=== PATIENT | female | born 1950 | race Caucasian/White ===

== ENCOUNTER 2024-05-02 14:49 | Emergency (ER) | payer MEDICARE, SELFPAY ==
[2024-05-02 14:50] VITALS: BP 154/75; PULSE 56; RESP 16; TEMP 36.2; O2SAT 95; BMI 38.6
[2024-05-02 15:15] LABS: Absolute Lymphocyte Count 1.29 X10^3/uL (0.83-4.51); Absolute Neutrophil Count 6.1 X10^3/uL (2.0-7.7); Basophil# 0.03 X10^3/uL; Basophil% 0.4 % (0-1); Eosinophil# 0.14 X10^3/uL; Eosinophils% 1.8 % (0-5); Hemoglobin 12.2 g/dL (12.0-15.0); Lymphocyte # 1.29 X10^3/ul (0.83-4.51); Lymphocyte % 16.2 % (19-41); Mean Corp Hgb Conc 33.9 g/dL (32-36); Mean Corpuscular Hgb 29.5 pg (27.0-32.0); Mean Platelet Vol. 10.1 fl (6.2-12.0); Monocyte# 0.39 X10^3/uL; Monocyte% 4.9 % (0-10); NRBC Flagged by Analyzer 0 % (0-5); Neutrophil # 6.08 X10^3/uL (2.7-7.7); Neutrophil % 76.3 % (47-70); Platelet Count 266 K/mm3 (150-450); RBC Distribution Width CV 12.3 % (11.6-14.6); RBC Distribution Width SD 39.6 fl (35.1-43.9); Red Blood Count 4.14 M/mm3 (4.2-5.4)
--- NOTE | 2024-05-02 15:25 | RAD_ITS ---
INDICATION: Pain EXAMINATION/TECHNIQUE: X-RAY - XR Abdomen Series W/ Chest 1 View COMPARISON: No relevant prior comparison study available FINDINGS: --Chest: LINES/DEVICES: None. LUNGS: No consolidation, edema or effusion. There is a granuloma within the left midlung. No pneumothorax. MEDIASTINUM AND CARDIOVASCULAR STRUCTURES: Cardiac silhouette not enlarged. Central airways and mediastinal contour are unremarkable. BONES AND SOFT TISSUES: No acute findings. --Abdomen: BOWEL GAS PATTERN: Non-obstructive. No bowel or stomach distention. FREE AIR: None visualized. ORGANOMEGALY: Not seen. CALCIFICATIONS: There are calcific densities within the expected region of the spleen consistent with splenic granulomas. BONES AND SOFT TISSUES: No acute findings. RAD/Acute Abdomen Inc Chest IMPRESSION: No acute cardiopulmonary process. Nonspecific bowel gas pattern. Electronically Signed: Flor Everett MD at 16:00 EDT ,
--- NOTE | 2024-05-02 15:32 | EDS_ITS ---
HPI HPI - GI History of Present Illness Chief Complaint: Abd Pain Detail of Chief Complaint: Indigestion initially and then to episodes of abdominal muscle cramping Informant: patient and spouse/S.O. Abdominal Pain/Flank Pain Onset: Today ( 100 to 100 when she was awakened from sleep with indigestion and 2 episodes since she was awake of cramping pain) Context: Sudden Onset Timing: Intermittent Quality: Cramping (2 episodes that lasted 2 to 3 minutes in duration) and - (Indigestion that awoke her from sleep and lasted for 1 hour) Location: Diffuse (All 3 episodes) Current Severity: Gone Maximum Severity: Severe Worsened by: Nothing; Not Worsened By Car ride, Food or Movement Relieved by: Nothing; Not Relieved By Antacids, Food or Remaining Still Nausea/Vomiting/Emesis GI Symptom: Positive for Nausea; Negative for Vomiting Diarrhea/Melena/Hematochezia GI Symptom: Positive for - (1 soft mushy stool this morning without blood or mucus); Negative for Diarrhea, Melena or Hematochezia Associated Symptoms Associated Symptoms: Negative for Dysuria, Frequency, Hematuria or Urgency LMP: Status post hysterectomy many years ago for vaginal bleeding Narrative Narrative: Patient is a 73-year-old female. She has no significant past medical history. She awoke from sleep at 02 100 because of generalized indigestion that lasted an hour. She had no other symptoms at that time. I.e. cardiac or respiratory or urologic. This morning after awakening she had a soft mushy stool and had an episode where her entire abdominal wall cramped and lasted 2 to 3 minutes. She had another episode when she was out with her and became diaphoretic and was lightheaded. This lasted 2 to 3 minutes as well. She is presently pain- free and has no symptoms. She denies fever, chills night sweats. She denies history of renal ureterolithiasis. She denies dysuria, frequency, urgency or hematuria. She denies blood or mucus in her stool. She did make the comment that she feels like she could have a large bowel movement. There is no history of direct or indirect trauma. She has never had pain like this. Prior similar symptoms: No Recent Illness/Hospitalization: No [facility] Medical History (Updated 05/02/24 @ 16:[address] Gilmer Huang MD) Hypercholesterolemia Type 2 diabetes mellitus Hypothyroidism Hypertension Allergy/AdvReac Type Severity Reaction Status Date / Time No Known Allergies Allergy Verified 05/02/24 14:51 Social History (Updated 05/02/24 @ 15:[address] Gilmer Huang MD) household members: spouse Smoking Status: Never smoker ROS ROS ED Constitutional Constitutional ED: Denies chills, fever(s), subjective, sweats or weight loss ENT ENT ED: Denies ear pain, rhinorrhea or sore throat Cardiovascular Cardiovascular: Denies chest pain or palpitations Respiratory/Chest Respiratory/Chest: Denies cough, dyspnea or dyspnea on exertion Gastrointestinal Gastrointestinal: Reports abdominal pain and nausea; Denies constipation, diarrhea, melena or vomiting Genitourinary Genitourinary ED: Denies dysuria, hematuria or urinary frequency Musculoskeletal Musculoskeletal: Denies arthralgias, back pain, myalgias or neck pain Integumentary Denies rash Endocrine Endocrinology: Denies polydipsia or polyphagia Hematologic/Lymphatic Hematologic/Lymphatic: Denies easy bleeding or easy bruising EXAM Physical Exam Const Vital Signs: 05/02/24 14:50 Temperature 97.2 F L Temperature Source Temporal Pulse Rate 56 L Respiratory Rate 16 Blood Pressure 154/75 H Blood Pressure Mean 101 Pulse Ox 95 Oxygen Delivery Method Room Air Positive well nourished and well developed General Appearance ED: well developed; Negative for pallor HEENT Reports moist mucous membranes normocephalic and atraumatic Eyes PERRL and EOMs intact bilaterally General Eye ED: Negative for pale conjunctiva or scleral icterus Neck no lymphadenopathy, supple and no JVD Resp normal respiratory effort and clear to auscultation bilaterally Cardio regular rate, regular rhythm, S1 normal heart sound, S2 normal heart sound and no murmurs GI non-tender, non-distended and no masses GI Narrative: Slight tympany to percussion. Auscultation: hyperactive bowel sounds Palpation: soft; Negative for mass or pulsatile mass Back/Spine no CVA tenderness Extremity full ROM General Extremety ED: Negative for edema or tenderness General Extremity: Negative for edema Neuro CN's II-XII intact bilaterally, moves all extremities and no sensory deficits noted Sensorium / Orientation: alert Motor Exam: strength 5/5 throughout Psych mental status grossly normal and thought process normal Skin no wounds General Skin Exam: Negative for jaundice or pallor Lesions: no lesions Rashes: no rashes MDM MDM MDM Narrative Medical decision making narrative: Differential diagnosis is abdominal pain of unknown etiology, possible early viral gastroenteritis, possible early small bowel obstruction so she has history of hysterectomy, doubt ureterolithiasis with obstruction and doubt biliary colic since she has no right upper quadrant pain or any abdominal pain for that matter. Lab Data Attestation: I reviewed the patient's lab results. Lab results narrative: CBC is normal. Basic metabolic panel is remarkable for an elevated BUN/creatinine of 21.35 with an estimated GFR of 41. BUN to creatinine ratio is approximate 15-1. Glucose slightly elevated 117 with a normal CO2 and anion gap. She is diabetic. Lipase is normal. Labs: Laboratory Results - last 24 hr 05/02/24 15:08 WBC 8.0 RBC 4.14 L Hgb 12.2 Hct 36.0 L MCV 87.0 MCH 29.5 MCHC 33.9 RDW Std Deviation 39.6 RDW Coeff of [place] 12.3 Plt Count 266 MPV 10.1 Immature Gran % (Auto) 0.400 Neut % (Auto) 76.3 H Lymph % (Auto) 16.2 L [place] % (Auto) 4.9 Eos % (Auto) 1.8 Baso % (Auto) 0.4 Absolute Neuts (auto) 6.1 Absolute Lymphs (auto) 1.29 Nucleated RBC % 0 Sodium 138 Potassium 4.3 Chloride 104 Carbon Dioxide 26.0 Anion Gap 8 BUN 20 H Creatinine 1.35 H Estim Creat Clear Calc 42.22 Est GFR (MDRD) Af Amer 49 L Est GFR (MDRD) Non-Af 41 L BUN/Creatinine Ratio 14.8 Glucose 117 H Calcium 9.6 Lipase 46 Laboratory results were reviewed with patient. Patient's creatinine is up from baseline. She and her are visiting from [place]. Will order outpatient BUN and creatinine for next Saturday, May 09. Will follow-up with the results myself and contact patient with results and recommendations. Radiography Chest X-Ray - ED: Read by ED Physician (Three-view abdominal series reveals no significant abnormality. The chest portion was normal cardiac silhouette and size. Lung parenchyma is normal. Hilum is normal. Osseous trucks unrema rkable. The abdominal portion reveals an ossific gas pattern. There is no dilation of small or large bowel.) Treatment and Re-Evaluation :: Patient has been observed. She is asymptomatic. This could be an adverse reaction to the medication she was placed on for weight loss. Discharge Plan Triage Chief Complaint: Abd Pain ED Provider: Gilmer Huang Dx/Rx/DC Orders Clinical Impression: Acute generalized abdominal pain, Hypothyroidism, Type 2 diabetes mellitus, Indigestion, Elevated serum creatinine, Elevated blood pressure reading with diagnosis of hypertension Instructions: ED Abdominal Pain Unkn Cause Fem, ED Renal Insufficiency Primary Care Provider: Care Physician,No Primary Referrals: Care Physician,No Primary [Primary Care Provider] - Doctor,Your [Non-Staff] - As Needed Print Language: Armenian Disposition Disposition: Home, Self Care
[2024-05-02 15:44] LABS: Anion Gap 8 (5-15); BUN 20 mg/dL (7-18); BUN/Creat Ratio 14.8 RATIO (10-20); Calcium,Total 9.6 mg/dL (8.5-10.1); Chloride 104 mmol/L (98-107); Creatinine, Serum 1.35 mg/dL (0.55-1.02); EST Glomerular Filtration Rate 41 mL/min (>60); Est Glom Filt Rate - Afr Amer 49 mL/min (>60); Estimated Creatinine Clearance 42.22 ml/min; Glucose 117 mg/dL (74-106); Lipase 46 U/L (13-75); Potassium 4.3 mmol/L (3.5-5.1); Sodium Level 138 mmol/L (136-145)
[2024-05-02 16:13] VITALS: BP 103/50; PULSE 86; RESP 16; TEMP 36.6; O2SAT 99
== END 2024-05-02 16:15 | disposition home or self-care (01) ==
PROVIDERS: Emergency Provider Emergency Medicine; Visit Provider Emergency Medicine
DX: R10.84 Generalized abdominal pain (principal); E11.65 Type 2 diabetes mellitus with hyperglycemia; R79.89 Other specified abnormal findings of blood chemistry; K30 Functional dyspepsia; E78.00 Pure hypercholesterolemia, unspecified; I10 Essential (primary) hypertension; E03.9 Hypothyroidism, unspecified
CPT/HCPCS: 74022; 80048; 83690; 85025; 99283; A4216